=== PATIENT | female | born 1985 | race Caucasian/White ===

== ENCOUNTER 2016-10-26 10:35 | Emergency (ER) | payer OTHER ==
--- NOTE | 2016-10-26 12:42 | ED ORDER SUMMARY ---
..... Patient: MALDONADO RAMIREZ OrderSheet [facility] VisitID: [id number] [address] [place] [address] 31y, F Registration Date/Time: 10/26/2016 ORDER SHEET Weight: 73.9 kg (stated) Allergies: No Known Drug Allergy GENERAL ORDERS: UA-Culture if indicated Urgent (11:32 10/26/2016 America Weber) (Ack 11:34 LNations ER Tech1) (11:37 JBest R.N.) Urine Urgent (11:32 10/26/2016 America Weber) (Ack 11:34 LNations ER Tech1) (11:37 JBest R.N.) MEDICATION ORDERS: Toradol IM 60 mg (NOW) (12:06 10/26/2016 America Weber) (12:11 JBest R.N.) IV FLUIDS: ORDER SHEET NOTES: [Electronically signed by Danielle Holly R.N. (13:07 10/26/2016)] [Electronically signed by Adrien Nunn Dr. (08:48 10/28/2016)] [Electronically locked/signed by Danielle Holly R.N. (13:07 10/26/2016)]
--- NOTE | 2016-10-26 12:42 | ED NURSING NOTES ---
Clinical Report - Nurses [facility] [address] [place] [address] 10/26/2016 10:38 Patient: MALDONADO RAMIREZ TRIAGE Triage time 11:04. SEPSIS SCREEN: Sepsis Screen. Negative (no infection suspected/documented). --11:10 Danielle Holly R.N. 11:04 10/26/16. BP: 128/95. HR: 75. RR: 16. O2 saturation: 100%. Temp: 98.1 F. Pain level now: 02/22. --11:10 Danielle Holly R.N. Chief Complaint: Location of symptoms- (Right Flank Pain). --11:12 Danielle Holly R.N. Weight: 73.9 kg stated. Height/Length: 65 inches Per Patient. BMI: 27.1. --11:10 Danielle Holly R.N. Medications TraZODone HCl Oral, as needed. --11:07 Danielle Holly R.N. Allergies No Known Drug Allergy. --11:07 Danielle Holly R.N. History Arrived by private vehicle. Historian: patient. Primary physician (Chely ([facility])). ( Left side flank pain described as constant pain that gets worse when she sneezes or moves a certain way). No injury occurred. This occurred (about 1 weeks ago). 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 (CT at [facility] in [facility] and US in in [place]). PAST MEDICAL HX: Immunizations: status is unknown. Last normal menstrual period was 2 weeks ago. SURGERY HX: No history of previous surgery. SOCIAL HX: Never smoker. Regular alcohol use; consumes two liquor drinks daily and wine by the bottle daily. Last drink was less than 24 hours ago. SELF HARM ASSESSMENT: A self harm assessment was performed. The patient answered "no" to the question "Do you have thoughts of harming or killing yourself?". NUTRITIONAL RISK ASSESSMENT: The nutritional risk assessment revealed no deficiencies. FUNCTIONAL ASSESSMENT: Functional assessment: no impairments noted. LEARNING NEEDS ASSESSMENT: The learning needs assessment revealed no barriers. ABUSE ASSESSMENT: Abuse assessment: ("Yes") The patient was asked "Do you feel safe in your home?". SKIN INTEGRITY ASSESSMENT: Skin integrity risk assessment completed. No skin integrity risk identified. --11:10 Danielle Holly R.N. PROBLEMS: no known problems. ADDITIONAL SURGERIES: no known surgeries. PHYSICAL ASSESSMENT Ambulatory to room. Patient gowned. GENERAL / NEURO / PSYCH: Oriented X 4. Alert. Appears in no acute distress. SKIN: Skin intact. Skin is warm and dry. --11:11 Danielle Holly R.N. NURSING PROGRESS NOTES Patient gowned. Reassurance given. Two patient identifiers checked. Call light placed in reach. Bed placed in lowest position. Brakes of bed on. Patient ready for evaluation- ED physician notified. --11:11 Danielle Holly R.N. 12:11 10/26/2016 Toradol (Ketorolac Tromethamine) IM 60 mg given. Given in the right gluteus vimal. Allergies verified and confirmed 5 rights. --12:11 Danielle Holly R.N. DISPOSITION / DISCHARGE 12:55 10/26/16. BP: 128/90. HR: 77. RR: 16. O2 saturation: 100%. Temp: 98.1 F (oral). Pain level now: 09/22. --12:55 Danielle Holly R.N. Condition at departure: improved. No learning barriers present. Discharge instructions provided and reviewed with the patient. Activity restrictions reviewed. Work note given. Patient verbalized understanding. Written instructions provided in Lithuanian. The patient was discharged by the physician. She was discharged home. She left the Emergency Department ambulatory and via private vehicle. Patient driving. --12:56 Danielle Holly R.N. Departure time: 12:56. --12:56 Danielle Holly R.N. Locked/Released at 10/26/2016 13:07 by Danielle Holly R.N.
--- NOTE | 2016-10-26 12:42 | ED NURSING NOTES ---
Clinical Report - Nurses [facility] [address] [place] [place] [address] 10/26/2016 10:38 Patient: MALDONADO RAMIREZ TRIAGE Triage time 11:04. SEPSIS SCREEN: Sepsis Screen. Negative (no infection suspected/documented). --11:10 Danielle Holly R.N. 11:04 10/26/16. BP: 128/95. HR: 75. RR: 16. O2 saturation: 100%. Temp: 98.1 F. Pain level now: 02/22. --11:10 Danielle Holly R.N. Chief Complaint: Location of symptoms- (Right Flank Pain). --11:12 Danielle Holly R.N. Weight: 73.9 kg stated. Height/Length: 65 inches Per Patient. BMI: 27.1. --11:10 Danielle Holly R.N. Medications TraZODone HCl Oral, as needed. --11:07 Danielle Holly R.N. Allergies No Known Drug Allergy. --11:07 Danielle Holly R.N. History Arrived by private vehicle. Historian: patient. Primary physician (Chely ([facility])). ( Left side flank pain described as constant pain that gets worse when she sneezes or moves a certain way). No injury occurred. This occurred (about 1 weeks ago). 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 (CT at [facility] in [facility] and US in in [place]). PAST MEDICAL HX: Immunizations: status is unknown. Last normal menstrual period was 2 weeks ago. SURGERY HX: No history of previous surgery. SOCIAL HX: Never smoker. Regular alcohol use; consumes two liquor drinks daily and wine by the bottle daily. Last drink was less than 24 hours ago. SELF HARM ASSESSMENT: A self harm assessment was performed. The patient answered "no" to the question "Do you have thoughts of harming or killing yourself?". NUTRITIONAL RISK ASSESSMENT: The nutritional risk assessment revealed no deficiencies. FUNCTIONAL ASSESSMENT: Functional assessment: no impairments noted. LEARNING NEEDS ASSESSMENT: The learning needs assessment revealed no barriers. ABUSE ASSESSMENT: Abuse assessment: ("Yes") The patient was asked "Do you feel safe in your home?". SKIN INTEGRITY ASSESSMENT: Skin integrity risk assessment completed. No skin integrity risk identified. --11:10 Danielle Holly R.N. PROBLEMS: no known problems. ADDITIONAL SURGERIES: no known surgeries. PHYSICAL ASSESSMENT Ambulatory to room. Patient gowned. GENERAL / NEURO / PSYCH: Oriented X 4. Alert. Appears in no acute distress. SKIN: Skin intact. Skin is warm and dry. --11:11 Danielle Holly R.N. NURSING PROGRESS NOTES Patient gowned. Reassurance given. Two patient identifiers checked. Call light placed in reach. Bed placed in lowest position. Brakes of bed on. Patient ready for evaluation- ED physician notified. --11:11 Danielle Holly R.N. 12:11 10/26/2016 Toradol (Ketorolac Tromethamine) IM 60 mg given. Given in the right gluteus vimal. Allergies verified and confirmed 5 rights. --12:11 Danielle Holly R.N. DISPOSITION / DISCHARGE 12:55 10/26/16. BP: 128/90. HR: 77. RR: 16. O2 saturation: 100%. Temp: 98.1 F (oral). Pain level now: 09/22. --12:55 Danielle Holly R.N. Condition at departure: improved. No learning barriers present. Discharge instructions provided and reviewed with the patient. Activity restrictions reviewed. Work note given. Patient verbalized understanding. Written instructions provided in Georgian. The patient was discharged by the physician. She was discharged home. She left the Emergency Department ambulatory and via private vehicle. Patient driving. --12:56 Danielle Holly R.N. Departure time: 12:56. --12:56 Danielle Holly R.N. Locked/Released at 10/26/2016 13:07 by Danielle Holly R.N.
--- NOTE | 2016-10-26 12:42 | ED ORDER SUMMARY ---
..... Patient: MALDONADO RAMIREZ OrderSheet [facility] VisitID: [id number] [address] [place] [address] 31y, F Registration Date/Time: 10/26/2016 ORDER SHEET Weight: 73.9 kg (stated) Allergies: No Known Drug Allergy GENERAL ORDERS: UA-Culture if indicated Urgent (11:32 10/26/2016 America Weber) (Ack 11:34 LNations ER Tech1) (11:37 JBest R.N.) Urine Urgent (11:32 10/26/2016 America Weber) (Ack 11:34 LNations ER Tech1) (11:37 JBest R.N.) MEDICATION ORDERS: Toradol IM 60 mg (NOW) (12:06 10/26/2016 America Weber) (12:11 JBest R.N.) IV FLUIDS: ORDER SHEET NOTES: [Electronically signed by Danielle Holly R.N. (13:07 10/26/2016)] [Electronically signed by Adrien Nunn Dr. (08:48 10/28/2016)] [Electronically locked/signed by Danielle Holly R.N. (13:07 10/26/2016)]
--- NOTE | 2016-10-26 12:42 | ED CLINICAL REPORT ---
Clinical Report - Physicians/Mid Levels [facility] [address] [place] [address] 10/26/2016 10:38 Patient: MALDONADO RAMIREZ Time Seen: 1101; initial patient contact. Arrived- By private vehicle. Historian- patient. HISTORY OF PRESENT ILLNESS Chief Complaint: FLANK PAIN. No radiation. It is described as located in the left flank. At its maximum, severity described as moderate. When seen in the E.D., severity described as moderate. Modifying factors- worsened by cough and deep breaths. (Worse with certain positions). Not relieved by anything. This started about 1 week ago. No nausea, loss of appetite, vomiting or diarrhea. Similar symptoms previously: None. Recent medical care: The patient was seen recently at another facility in a clinic (CT and US only showed fatty, enlarged liver and mild GB wall thickening.). REVIEW OF SYSTEMS No constipation, difficulty with urination, pain with urination, fever or chills. All systems otherwise negative, except as recorded above. PAST HISTORY Negative. Problems: no known problems. Surgeries: No history of previous surgery. Additional Surgeries: no known surgeries. Medications: TraZODone HCl Oral, as needed. Allergies: No Known Drug Allergy. SOCIAL HISTORY Never smoker. Regular alcohol use. No drug use. ADDITIONAL NOTES The nursing notes have been reviewed. PHYSICAL EXAM Vital Signs: 10/26/2016 11:04 BP: 128/95. HR: 75. RR: 16. O2 saturation: 100%. Temp: 98.1 F. Pain level now: 02/22. Have been reviewed. Hypertensive. Heart rate normal. Respiratory rate normal. Temperature normal. Oxygen saturation normal. Appearance: Alert. Oriented X3. No acute distress. CVS: Normal heart rate and rhythm. Heart sounds normal. Respiratory: No respiratory distress. Breath sounds normal. Abdomen: Soft. Moderate tenderness in the left side of the abdomen. No guarding or rebound tenderness. Bowel sounds normal. No organomegaly. No mass. Back: Moderate tenderness. Moderately limited ROM in the back- in the thoracic spine: decreased left lateral bending. No CVA tenderness or tenderness or vertebral point tenderness. Skin: Skin warm and dry. Normal skin color. No rash. Neuro: Oriented X 3. LABS, X-RAYS, AND EKG Laboratory Tests: UA-Culture if indicated: (DAMION: 10/26/2016 11:18) ( Mscvd 10/26/2016 12:03) Final results Test Result Flag Units (Reference) URINE COLOR STRAW URINE APPEARANCE CLEAR URINE GLUCOSE NEGATIVE (NEGATIVE) URINE BILIRUBIN NEGATIVE (NEGATIVE) URINE KETONE NEGATIVE (NEGATIVE) URINE SPECIFIC GRAVITY <= 1.005 L (1.010-1.030) URINE PH 6.0 (5.0-8.0) URINE PROTEIN NEGATIVE (NEGATIVE) URINE UROBILINOGEN 0.2 EU/dL (0.2-1.0) URINE NITRITE NEGATIVE (NEGATIVE) URINE BLOOD NEGATIVE (NEGATIVE) URINE LEUK ESTERASE TRACE (NEGATIVE) URINE RBC NONE SEEN rbc/hpf (0-1) URINE WBC 1-3 wbc/hpf (0-1) URINE EPITHELIAL CELLS 3-5 EPI/hpf (0-5) URINE BACTERIA FEW (1+) (NONE SEEN) URINE COMMENT CULTURE INDICATED URINE CULTURES ARE SET-UP BASED ON THE FOLLOWING CRITERIA:POSITIVE NITRITEPOSITIVE LEUKOCYTE ESTERASEGREATER THAN 10 WHITE BLOOD CELLSMODERATE (2+) OR GREATER BACTERIA Urine: (DAMION: 10/26/2016 11:18) ( CagRcvd 10/26/2016 11:55) Final results Test Result Flag Units (Reference) URINE NEGATIVE . PROGRESS AND PROCEDURES Disposition: Discharged home in good and improved condition. Condition: good. CLINICAL IMPRESSION Abdominal muscle strain INSTRUCTIONS No lifting greater than 10 lbs until well. Your Current Medications: CONTINUE TAKING THE FOLLOWING MEDICATIONS: TraZODone HCl Oral : prn. Prescription Medications: Hydrocodone/APAP 5mg / 325mg: take 1 orally every 6 hours as needed for pain. Dispense fifteen (15). No refill. Diclofenac 50 mg tablets: take 1 tablet orally every 8 hours as needed for pain or stiffness. Dispense thirty (30). No refill. Follow-up: Follow up with your doctor in about two days. Call for an appointment. Screening today revealed the patient's blood pressure to be in the hypertensive range. The patient should follow up with a primary care provider for blood pressure management. (Electronically signed by Adrien Nunn Dr. 10/28/2016 8:48)
--- NOTE | 2016-10-26 12:42 | ED CLINICAL REPORT ---
Clinical Report - Physicians/Mid Levels [facility] [address] [place] [address] 10/26/2016 10:38 Patient: MALDONADO RAMIREZ Time Seen: 1101; initial patient contact. Arrived- By private vehicle. Historian- patient. HISTORY OF PRESENT ILLNESS Chief Complaint: FLANK PAIN. No radiation. It is described as located in the left flank. At its maximum, severity described as moderate. When seen in the E.D., severity described as moderate. Modifying factors- worsened by cough and deep breaths. (Worse with certain positions). Not relieved by anything. This started about 1 week ago. No nausea, loss of appetite, vomiting or diarrhea. Similar symptoms previously: None. Recent medical care: The patient was seen recently at another facility in a clinic (CT and US only showed fatty, enlarged liver and mild GB wall thickening.). REVIEW OF SYSTEMS No constipation, difficulty with urination, pain with urination, fever or chills. All systems otherwise negative, except as recorded above. PAST HISTORY Negative. Problems: no known problems. Surgeries: No history of previous surgery. Additional Surgeries: no known surgeries. Medications: TraZODone HCl Oral, as needed. Allergies: No Known Drug Allergy. SOCIAL HISTORY Never smoker. Regular alcohol use. No drug use. ADDITIONAL NOTES The nursing notes have been reviewed. PHYSICAL EXAM Vital Signs: 10/26/2016 11:04 BP: 128/95. HR: 75. RR: 16. O2 saturation: 100%. Temp: 98.1 F. Pain level now: 02/22. Have been reviewed. Hypertensive. Heart rate normal. Respiratory rate normal. Temperature normal. Oxygen saturation normal. Appearance: Alert. Oriented X3. No acute distress. CVS: Normal heart rate and rhythm. Heart sounds normal. Respiratory: No respiratory distress. Breath sounds normal. Abdomen: Soft. Moderate tenderness in the left side of the abdomen. No guarding or rebound tenderness. Bowel sounds normal. No organomegaly. No mass. Back: Moderate tenderness. Moderately limited ROM in the back- in the thoracic spine: decreased left lateral bending. No CVA tenderness or tenderness or vertebral point tenderness. Skin: Skin warm and dry. Normal skin color. No rash. Neuro: Oriented X 3. LABS, X-RAYS, AND EKG Laboratory Tests: UA-Culture if indicated: (DAMION: 10/26/2016 11:18) ( Mscvd 10/26/2016 12:03) Final results Test Result Flag Units (Reference) URINE COLOR STRAW URINE APPEARANCE CLEAR URINE GLUCOSE NEGATIVE (NEGATIVE) URINE BILIRUBIN NEGATIVE (NEGATIVE) URINE KETONE NEGATIVE (NEGATIVE) URINE SPECIFIC GRAVITY <= 1.005 L (1.010-1.030) URINE PH 6.0 (5.0-8.0) URINE PROTEIN NEGATIVE (NEGATIVE) URINE UROBILINOGEN 0.2 EU/dL (0.2-1.0) URINE NITRITE NEGATIVE (NEGATIVE) URINE BLOOD NEGATIVE (NEGATIVE) URINE LEUK ESTERASE TRACE (NEGATIVE) URINE RBC NONE SEEN rbc/hpf (0-1) URINE WBC 1-3 wbc/hpf (0-1) URINE EPITHELIAL CELLS 3-5 EPI/hpf (0-5) URINE BACTERIA FEW (1+) (NONE SEEN) URINE COMMENT CULTURE INDICATED URINE CULTURES ARE SET-UP BASED ON THE FOLLOWING CRITERIA:POSITIVE NITRITEPOSITIVE LEUKOCYTE ESTERASEGREATER THAN 10 WHITE BLOOD CELLSMODERATE (2+) OR GREATER BACTERIA Urine: (DAMION: 10/26/2016 11:18) ( WygRcvd 10/26/2016 11:55) Final results Test Result Flag Units (Reference) URINE NEGATIVE . PROGRESS AND PROCEDURES Disposition: Discharged home in good and improved condition. Condition: good. CLINICAL IMPRESSION Abdominal muscle strain INSTRUCTIONS No lifting greater than 10 lbs until well. Your Current Medications: CONTINUE TAKING THE FOLLOWING MEDICATIONS: TraZODone HCl Oral : prn. Prescription Medications: Hydrocodone/APAP 5mg / 325mg: take 1 orally every 6 hours as needed for pain. Dispense fifteen (15). No refill. Diclofenac 50 mg tablets: take 1 tablet orally every 8 hours as needed for pain or stiffness. Dispense thirty (30). No refill. Follow-up: Follow up with your doctor in about two days. Call for an appointment. Screening today revealed the patient's blood pressure to be in the hypertensive range. The patient should follow up with a primary care provider for blood pressure management. (Electronically signed by Adrien Nunn Dr. 10/28/2016 8:48)
--- NOTE | 2016-10-28 08:48 | ED MED RECONCILIATION SUMMARY ---
Patient: MALDONADO RAMIREZ Medication Reconciliation Report [facility] VisitID: [id number] [address] [place] [address] 31y, F Registration Date/Time: 10/26/2016 Weight: 73.9 kg Height/Length: 65 in. BMI: 27.1 ALLERGIES: No Known Drug Allergy The patient's Home Medications are listed below: CONTINUE TAKING THE FOLLOWING MEDICATIONS: TraZODone HCl Oral The source(s) of the original Home Medication information: Not obtained. The following Medications were given to the patient in the Emergency Department: Toradol [IM] IM 60 mg, administered: 10/26/2016 12:11:00 PM The following Medications were prescribed to the patient: Hydrocodone/APAP 5mg / 325mg: take 1 orally every 6 hours as needed for pain. Dispense fifteen (15). No refill. -- Adrien Nunn Dr. Diclofenac 50 mg tablets: take 1 tablet orally every 8 hours as needed for pain or stiffness. Dispense thirty (30). No refill. -- Adrien Nunn Dr.
--- NOTE | 2016-10-28 08:48 | ED DISCHARGE INSTRUCTIONS ---
Patient: MALDONADO RAMIREZ General Instructions [facility] VisitID: [id number] [address] [place] [address] 31y, F Registration Date/Time: 10/26/2016 Abdominal muscle strain INSTRUCTIONS No lifting greater than 10 lbs until well. Your Current Medications: CONTINUE TAKING THE FOLLOWING MEDICATIONS: TraZODone HCl Oral : prn. Prescription Medications: Hydrocodone/APAP 5mg / 325mg: take 1 orally every 6 hours as needed for pain. Dispense fifteen (15). No refill. Diclofenac 50 mg tablets: take 1 tablet orally every 8 hours as needed for pain or stiffness. Dispense thirty (30). No refill. Follow-up: Follow up with your doctor in about two days. Call for an appointment. Screening today revealed the patient's blood pressure to be in the hypertensive range. The patient should follow up with a primary care provider for blood pressure management. ADDITIONAL INFORMATION Muscle Strain, Abdomen A muscle strain is a stretching and tearing of muscle fibers. The abdomen is protected by a thick wall of muscle in the front and sides. These muscles help with twisting and bending forward. Repeated coughing, lifting heavy objects or sudden jerking movements can sometimes cause a muscle strain in the abdomen. This causes pain that is worse when you move. The area may also feel tender or be swollen and bruised. Home Care: Make an ice pack (ice cubes in a plastic bag, wrapped in a towel) and apply over the injured area for 20 minutes every 1-2 hours the first day. You should continue with ice packs 3-4 times a day for the next two days. Continue the use of ice packs for relief of pain and swelling as needed. You may use acetaminophen (Tylenol) or ibuprofen (Motrin, Advil) to control pain, unless another pain medicine was prescribed. [NOTE: If you have liver or kidney disease, a stomach ulcer or GI bleeding, talk with your doctor before using these medicines.] Follow Up with your doctor or this facility if you are not improving within the next five days. Get Prompt Medical Attention if any of the following occur: Pain increases or moves to the right lower abdomen (just below the waistline) Fever of 100.4 F (38 C) or higher, or as directed by your healthcare provider Vomiting Severe abdominal pain that spreads to the back or toward the groin Dizziness, weakness or fainting Blood in the urine Unexpected vaginal bleeding (for women) Hydrocodone Bitartrate, Acetaminophen Oral tablet What is this medicine? ACETAMINOPHEN; HYDROCODONE (a set a ADRIANO ricardo fen; abdi droe KOE done) is a pain reliever. It is used to treat mild to moderate pain. How should I use this medicine? Take this medicine by mouth. Swallow it with a full glass of water. Follow the directions on the prescription label. If the medicine upsets your stomach, take the medicine with food or milk. Do not take more than you are told to take. Talk to your field service rep regarding the use of this medicine in children. This medicine is not approved for use in children. What side effects may I notice from receiving this medicine? Side effects that you should report to your doctor or health transitional care manager as soon as possible: allergic reactions like skin rash, itching or hives, swelling of the face, lips, or tongue breathing problems confusion feeling faint or lightheaded, falls stomach pain yellowing of the eyes or skin Side effects that usually do not require medical attention (report to your doctor or health transitional care manager if they continue or are bothersome): nausea, vomiting stomach upset What may interact with this medicine? alcohol antihistamines isoniazid medicines for depression, anxiety, or psychotic disturbances medicines for sleep muscle relaxants naltrexone narcotic medicines (opiates) for pain phenobarbital ritonavir tramadol What if I miss a dose? If you miss a dose, take it as soon as you can. If it is almost time for your next dose, take only that dose. Do not take double or extra doses. Where should I keep my medicine? Keep out of the reach of children. This medicine can be abused. Keep your medicine in a safe place to protect it from theft. Do not share this medicine with anyone. Selling or giving away this medicine is dangerous and against the law. Store at room temperature between 15 and 30 degrees C (59 and 86 degrees F). Protect from light. Keep container tightly closed. Throw away any unused medicine after the expiration date. Discard unused medicine and used packaging carefully. Pets and children can be harmed if they find used or lost packages. What should I tell my health care provider before I take this medicine? They need to know if you have any of these conditions: brain tumor Crohn's disease, inflammatory bowel disease, or ulcerative colitis drink more than 3 alcohol-containing drinks per day drug abuse or addiction head injury heart or circulation problems kidney disease or problems going to the bathroom liver disease lung disease, asthma, or breathing problems an unusual or allergic reaction to acetaminophen, hydrocodone, other opioid analgesics, other medicines, foods, dyes, or preservatives or trying to get breast-feeding What should I watch for while using this medicine? Tell your doctor or health transitional care manager if your pain does not go away, if it gets worse, or if you have new or a different type of pain. You may develop tolerance to the medicine. Tolerance means that you will need a higher dose of the medicine for pain relief. Tolerance is normal and is expected if you take the medicine for a long time. Do not suddenly stop taking your medicine because you may develop a severe reaction. Your body becomes used to the medicine. This does NOT mean you are addicted. Addiction is a behavior related to getting and using a drug for a non-medical reason. If you have pain, you have a medical reason to take pain medicine. Your doctor will tell you how much medicine to take. If your doctor wants you to stop the medicine, the dose will be slowly lowered over time to avoid any side effects. You may get drowsy or dizzy when you first start taking the medicine or change doses. Do not drive, use machinery, or do anything that may be dangerous until you know how the medicine affects you. Stand or sit up slowly. There are different types of narcotic medicines (opiates) for pain. If you take more than one type at the same time, you may have more side effects. Give your health care provider a list of all medicines you use. Your doctor will tell you how much medicine to take. Do not take more medicine than directed. Call emergency for help if you have problems breathing. The medicine will cause constipation. Try to have a bowel movement at least every 2 to 3 days. If you do not have a bowel movement for 3 days, call your doctor or health transitional care manager. Too much acetaminophen can be very dangerous. Do not take Tylenol (acetaminophen) or medicines that contain acetaminophen with this medicine. Many non-prescription medicines contain acetaminophen. Always read the labels carefully. You have been given the following additional information: Muscle Strain, Abdomen Hydrocodone Bitartrate, Acetaminophen Oral tablet No lifting greater than 10 lbs until well. (Electronically signed by Adrien Nunn Dr. 10/28/2016 8:48)
--- NOTE | 2016-10-28 08:48 | ED MED RECONCILIATION SUMMARY ---
Patient: MALDONADO RAMIREZ Medication Reconciliation Report [facility] VisitID: [id number] [address] [place] [address] 31y, F Registration Date/Time: 10/26/2016 Weight: 73.9 kg Height/Length: 65 in. BMI: 27.1 ALLERGIES: No Known Drug Allergy The patient's Home Medications are listed below: CONTINUE TAKING THE FOLLOWING MEDICATIONS: TraZODone HCl Oral The source(s) of the original Home Medication information: Not obtained. The following Medications were given to the patient in the Emergency Department: Toradol [IM] IM 60 mg, administered: 10/26/2016 12:11:00 PM The following Medications were prescribed to the patient: Hydrocodone/APAP 5mg / 325mg: take 1 orally every 6 hours as needed for pain. Dispense fifteen (15). No refill. -- Adrien Nunn Dr. Diclofenac 50 mg tablets: take 1 tablet orally every 8 hours as needed for pain or stiffness. Dispense thirty (30). No refill. -- Adrien Nunn Dr.
--- NOTE | 2016-10-28 08:48 | ED MAR SUMMARY ---
..... Medication Administration Record [facility] [address] [place] [address] Patient: MALDONADO RAMIREZ Visit ID: [id number] 31y, F Weight: 73.9 kg Height/Length: 65 in BMI: 27.1 ALLERGIES: No Known Drug Allergy Given 12:11 10/26/2016 Danielle Holly R.N. Medication Administered: TORADOL [IM] (KETOROLAC TROMETHAMINE), Dose: 60 mg IM. Medication Ordered: Toradol IM 60 mg (NOW).
--- NOTE | 2016-10-28 08:48 | ED DISCHARGE INSTRUCTIONS ---
Patient: MALDONADO RAMIREZ General Instructions [facility] VisitID: [id number] [address] [place] [address] 31y, F Registration Date/Time: 10/26/2016 Abdominal muscle strain INSTRUCTIONS No lifting greater than 10 lbs until well. Your Current Medications: CONTINUE TAKING THE FOLLOWING MEDICATIONS: TraZODone HCl Oral : prn. Prescription Medications: Hydrocodone/APAP 5mg / 325mg: take 1 orally every 6 hours as needed for pain. Dispense fifteen (15). No refill. Diclofenac 50 mg tablets: take 1 tablet orally every 8 hours as needed for pain or stiffness. Dispense thirty (30). No refill. Follow-up: Follow up with your doctor in about two days. Call for an appointment. Screening today revealed the patient's blood pressure to be in the hypertensive range. The patient should follow up with a primary care provider for blood pressure management. ADDITIONAL INFORMATION Muscle Strain, Abdomen A muscle strain is a stretching and tearing of muscle fibers. The abdomen is protected by a thick wall of muscle in the front and sides. These muscles help with twisting and bending forward. Repeated coughing, lifting heavy objects or sudden jerking movements can sometimes cause a muscle strain in the abdomen. This causes pain that is worse when you move. The area may also feel tender or be swollen and bruised. Home Care: Make an ice pack (ice cubes in a plastic bag, wrapped in a towel) and apply over the injured area for 20 minutes every 1-2 hours the first day. You should continue with ice packs 3-4 times a day for the next two days. Continue the use of ice packs for relief of pain and swelling as needed. You may use acetaminophen (Tylenol) or ibuprofen (Motrin, Advil) to control pain, unless another pain medicine was prescribed. [NOTE: If you have liver or kidney disease, a stomach ulcer or GI bleeding, talk with your doctor before using these medicines.] Follow Up with your doctor or this facility if you are not improving within the next five days. Get Prompt Medical Attention if any of the following occur: Pain increases or moves to the right lower abdomen (just below the waistline) Fever of 100.4 F (38 C) or higher, or as directed by your healthcare provider Vomiting Severe abdominal pain that spreads to the back or toward the groin Dizziness, weakness or fainting Blood in the urine Unexpected vaginal bleeding (for women) Hydrocodone Bitartrate, Acetaminophen Oral tablet What is this medicine? ACETAMINOPHEN; HYDROCODONE (a set a ADRIANO ricardo fen; abdi droe KOE done) is a pain reliever. It is used to treat mild to moderate pain. How should I use this medicine? Take this medicine by mouth. Swallow it with a full glass of water. Follow the directions on the prescription label. If the medicine upsets your stomach, take the medicine with food or milk. Do not take more than you are told to take. Talk to your welt treater regarding the use of this medicine in children. This medicine is not approved for use in children. What side effects may I notice from receiving this medicine? Side effects that you should report to your doctor or health senior care assistant as soon as possible: allergic reactions like skin rash, itching or hives, swelling of the face, lips, or tongue breathing problems confusion feeling faint or lightheaded, falls stomach pain yellowing of the eyes or skin Side effects that usually do not require medical attention (report to your doctor or health senior care assistant if they continue or are bothersome): nausea, vomiting stomach upset What may interact with this medicine? alcohol antihistamines isoniazid medicines for depression, anxiety, or psychotic disturbances medicines for sleep muscle relaxants naltrexone narcotic medicines (opiates) for pain phenobarbital ritonavir tramadol What if I miss a dose? If you miss a dose, take it as soon as you can. If it is almost time for your next dose, take only that dose. Do not take double or extra doses. Where should I keep my medicine? Keep out of the reach of children. This medicine can be abused. Keep your medicine in a safe place to protect it from theft. Do not share this medicine with anyone. Selling or giving away this medicine is dangerous and against the law. Store at room temperature between 15 and 30 degrees C (59 and 86 degrees F). Protect from light. Keep container tightly closed. Throw away any unused medicine after the expiration date. Discard unused medicine and used packaging carefully. Pets and children can be harmed if they find used or lost packages. What should I tell my health care provider before I take this medicine? They need to know if you have any of these conditions: brain tumor Crohn's disease, inflammatory bowel disease, or ulcerative colitis drink more than 3 alcohol-containing drinks per day drug abuse or addiction head injury heart or circulation problems kidney disease or problems going to the bathroom liver disease lung disease, asthma, or breathing problems an unusual or allergic reaction to acetaminophen, hydrocodone, other opioid analgesics, other medicines, foods, dyes, or preservatives or trying to get breast-feeding What should I watch for while using this medicine? Tell your doctor or health senior care assistant if your pain does not go away, if it gets worse, or if you have new or a different type of pain. You may develop tolerance to the medicine. Tolerance means that you will need a higher dose of the medicine for pain relief. Tolerance is normal and is expected if you take the medicine for a long time. Do not suddenly stop taking your medicine because you may develop a severe reaction. Your body becomes used to the medicine. This does NOT mean you are addicted. Addiction is a behavior related to getting and using a drug for a non-medical reason. If you have pain, you have a medical reason to take pain medicine. Your doctor will tell you how much medicine to take. If your doctor wants you to stop the medicine, the dose will be slowly lowered over time to avoid any side effects. You may get drowsy or dizzy when you first start taking the medicine or change doses. Do not drive, use machinery, or do anything that may be dangerous until you know how the medicine affects you. Stand or sit up slowly. There are different types of narcotic medicines (opiates) for pain. If you take more than one type at the same time, you may have more side effects. Give your health care provider a list of all medicines you use. Your doctor will tell you how much medicine to take. Do not take more medicine than directed. Call emergency for help if you have problems breathing. The medicine will cause constipation. Try to have a bowel movement at least every 2 to 3 days. If you do not have a bowel movement for 3 days, call your doctor or health senior care assistant. Too much acetaminophen can be very dangerous. Do not take Tylenol (acetaminophen) or medicines that contain acetaminophen with this medicine. Many non-prescription medicines contain acetaminophen. Always read the labels carefully. You have been given the following additional information: Muscle Strain, Abdomen Hydrocodone Bitartrate, Acetaminophen Oral tablet No lifting greater than 10 lbs until well. (Electronically signed by Adrien Nunn Dr. 10/28/2016 8:48)
--- NOTE | 2016-10-28 08:48 | ED MAR SUMMARY ---
..... Medication Administration Record [facility] [address] [place] [address] Patient: MALDONADO RAMIREZ Visit ID: [id number] 31y, F Weight: 73.9 kg Height/Length: 65 in BMI: 27.1 ALLERGIES: No Known Drug Allergy Given 12:11 10/26/2016 Danielle Holly R.N. Medication Administered: TORADOL [IM] (KETOROLAC TROMETHAMINE), Dose: 60 mg IM. Medication Ordered: Toradol IM 60 mg (NOW).
== END 2016-10-26 12:55 | disposition home or self-care (01) ==
LOC: ED SRH 10:35
DX: S39.011A Strain of muscle, fascia and tendon of abdomen, initial encounter (principal); X58.XXXA Exposure to other specified factors, initial encounter; Y93.9 Activity, unspecified; Y92.9 Unspecified place or not applicable; Y99.9 Unspecified external cause status; Z79.899 Other long term (current) drug therapy
CPT/HCPCS: 90004; 90469; 90627; 93070